=== PATIENT | male | born 1965 | race Caucasian/White ===

== ENCOUNTER 2018-05-19 13:35 | Inpatient (IN) | payer MEDICAID ==
[~2018-05-19] VITALS: Ht 160 cm; Wt 75.5 kg
[~2018-05-19 13:35] MED LIST: ASPI325T8 PO; BACL20TA PO; CELE200C PO; DULO60CA6 PO; FLUO20CA16 PO; GABA-586 PO; HYDR-2155 PO; IBUP800T19 PO; LISI-338 PO; METO25TA2 PO; OMEP20TA8 PO; PENI500T PO; SIMV10TA3 PO; TOPI50TA38 PO
[2018-05-19 14:26] LABS: BASO # 0.1 x10^3/uL (0.0-0.2); BASO % 1 % (0-3); EOS % 0 % (0-3); HEMATOCRIT 46.1 % (39.0-53.0); HEMOGLOBIN 15.6 g/dL (13.0-17.5); LYMPH % 9 % (24-48); MEAN CORPUSCULAR HEMOGLOBIN 31 pg (25-35); MEAN CORPUSCULAR HGB CONC 34 g/dL (31-37); MEAN CORPUSCULAR VOLUME 90 fL (79-100); MONO # 1.1 x10^3/uL (0.0-1.1); MONO % 10 % (0-9); NEUT # 9.1 x10^3uL (1.8-7.7); NEUT % 81 % (31-73); PLATELET COUNT 321 x10^3/uL (140-400); RED CELL DISTRIBUTION WIDTH 12.5 % (11.5-14.5); WHITE BLOOD COUNT 11.2 x10^3/uL (4.0-11.0)
[2018-05-19] MEDS ORDERED: diphenhydrAMINE 50 MG/ML VIAL IVP ONE (14:30)
[2018-05-19] MEDS ORDERED: BENZTROPINE 2 MG/2 ML AMPUL. IV ONE (14:30)
--- NOTE | 2018-05-19 14:49 | PHYS DOC ---
Past History Past Medical History: Arthritis, Fibromyalgia, Other Past Surgical History: No Surgical History Alcohol Use: None Drug Use: None Adult General Chief Complaint Chief Complaint: UPPER EXTREMITY PAIN HPI HPI 52-year-old male with multiple medical problems including depression who is on multiple psychiatric medications presents with unusual, uncontrollable arm movements that arriving in nature. He is also really unable to look up and he has a lot of ticking of his legs. He has not had any fever felt hot. He did fall a couple of days ago hit his head was seen at [facility] and discharged. He has never had this kind of problem before. This apparently started 2 days ago and has become progressively worse.[] Review of Systems Review of Systems Constitutional: Denies fever or chills [] Eyes: Denies change in visual acuity, redness, or eye pain [] HENT: Denies nasal congestion or sore throat [] Respiratory: Denies cough or shortness of breath [] Cardiovascular: No additional information not addressed in HPI [] GI: Denies abdominal pain, nausea, vomiting, bloody stools or diarrhea [] : Denies dysuria or hematuria [] Musculoskeletal: Per history of present illness[] Integument: Denies rash or skin lesions [] Neurologic: Per history of present illness[] Endocrine: Denies polyuria or polydipsia [] All other systems were reviewed and found to be within normal limits, except as documented in this note. Current Medications Current Medications Current Medications Medications (Trade) Dose Ordered Sig/Edwin Start Time Stop Time Status Last Admin Dose Admin Benztropine Mesylate (Cogentin) 2 mg 1X ONCE 05/19/18 14:30 05/19/18 14:31 DC 05/19/18 14:24 2 MG Diphenhydramine HCl (Benadryl) 50 mg 1X ONCE 05/19/18 14:30 05/19/18 14:31 DC 05/19/18 14:17 50 MG Allergies Allergies Allergies Coded Allergies Type Severity Reaction Last Updated Verified tramadol Allergy Intermediate Itching 05/19/18 Yes Physical Exam Physical Exam Constitutional: Well developed, well nourished, appears acutely ill. [] HENT: Normocephalic, atraumatic, bilateral external ears normal, oropharynx moist, no oral exudates, nose normal. [] Eyes: PERRLA, EOMI, conjunctiva normal, no discharge. [] Neck: Flexed forward but nontender. [] Cardiovascular:Heart rate regular rhythm, no murmur [] Lungs & Thorax: Bilateral breath sounds clear to auscultation [] Abdomen: Bowel sounds normal, soft, no tenderness, no masses, no pulsatile masses. [] Skin: Warm, dry, no erythema, no rash. [] Back: No tenderness, no CVA tenderness. [] Extremities: No tenderness, no cyanosis, no clubbing, ROM intact, no edema. [] Neurologic: Alert and oriented X 3, dystonic movements of his neck in the way of flexed forward and riding twisting movements of the left arm and uncontrollable kicking of his right and left leg. [] Psychologic: Extremely anxious. [] Current Patient Data Vital Signs Vital Signs Date Time Temp Pulse Resp B/P (MAP) Pulse Ox O2 Delivery O2 Flow Rate FiO2 05/19/18 13:45 97.3 90 24 97 Room Air Lab Results Laboratory Tests Test 05/19/18 14:10 White Blood Count 11.2 x10^3/uL (4.0-11.0) H Red Blood Count 5.10 x10^6/uL (4.30-5.70) Hemoglobin 15.6 g/dL (13.0-17.5) Hematocrit 46.1 % (39.0-53.0) Mean Corpuscular Volume 90 fL (79-100) Mean Corpuscular Hemoglobin 31 pg (25-35) Mean Corpuscular Hemoglobin Concent 34 g/dL (31-37) Red Cell Distribution Width 12.5 % (11.5-14.5) Platelet Count 321 x10^3/uL (140-400) Neutrophils (%) (Auto) 81 % (31-73) H Lymphocytes (%) (Auto) 9 % (24-48) L Monocytes (%) (Auto) 10 % (0-9) H Eosinophils (%) (Auto) 0 % (0-3) Basophils (%) (Auto) 1 % (0-3) Neutrophils # (Auto) 9.1 x10^3uL (1.8-7.7) H Lymphocytes # (Auto) 1.0 x10^3/uL (1.0-4.8) Monocytes # (Auto) 1.1 x10^3/uL (0.0-1.1) Eosinophils # (Auto) 0.0 x10^3/uL (0.0-0.7) Basophils # (Auto) 0.1 x10^3/uL (0.0-0.2) Ethyl Alcohol Level < 10 mg/dL (0-10) EKG EKG [] Radiology/Procedures Radiology/Procedures [] Impressions: REASON: trauma PROCEDURE: CT HEAD WO CONTRAST EXAM: Head CT without contrast. HISTORY: Involuntary movements. TECHNIQUE: Computed tomographic images of the head were obtained without intravenous contrast. *One or more of the following individualized dose reduction techniques were utilized for this examination: 1. Automated exposure control. 2. Adjustment of the mA and/or kV according to patient size. 3. Use of iterative reconstruction technique. COMPARISON: None. FINDINGS: There is no acute or subacute hemorrhage. There is no mass effect or midline shift. There is no hydrocephalus. There is an incidental cavum septum pellucidum et vergae. There are areas of decreased attenuation within the cerebral white matter, nonspecific and likely related to chronic small vessel disease. The visualized portions of the orbits, paranasal sinuses and mastoid air cells are unremarkable. No suspicious calvarial lesion is seen. IMPRESSION: No acute intracranial findings. Course & Med Decision Making Course & Med Decision Making Pertinent Labs and Imaging studies reviewed. (See chart for details) [ED course: Evaluation reveals a 52-year-old male who is likely having dystonic reactions to some of his psychiatric drugs. Patient was given 50 mg of Benadryl IV followed by Cogentin 2 mg IV with marked improvement in his symptoms. His left arm had the most improvement as it has stopped deriving twisting motion. His neck is relaxed he still having some spontaneous jerking of the legs. We will need to admit the patient for observation and continued treatment.] CRITICAL CARE: Time spent was 35 minutes. This includes medical management, evaluation, reevaluation, discussion with consultants and family. Critical Care does NOT include time spent on separately billed procedures. Dragon Disclaimer Dragon Disclaimer This electronic medical record was generated, in whole or in part, using a voice recognition dictation system. Departure Departure: Impression: Primary Impression: Acute dystonic reaction due to drugs Disposition: ADMITTED INPATIENT Admitting Physician: Jerome Camarillo Condition: IMPROVED Referrals: PRISCILLA CONDE DO (PCP) NINA TIPTON DO May 19, 2018 14:49
[2018-05-19 14:50] LABS: ALBUMIN 4.5 g/dL (3.4-5.0); ALBUMIN/GLOBULIN RATIO 1.6 (1.0-1.7); C REACTIVE PROTEIN 16.4 mg/L (0-3.3); CALCIUM 9.4 mg/dL (8.5-10.1); CREATININE 0.9 mg/dL (0.7-1.3); POTASSIUM 3.9 mmol/L (3.5-5.1); TOTAL BILIRUBIN 2.5 mg/dL (0.2-1.0); TOTAL PROTEIN 7.3 g/dL (6.4-8.2)
--- NOTE | 2018-05-19 15:04 | RAD ---
EXAM: Head CT without contrast. HISTORY: Involuntary movements. TECHNIQUE: Computed tomographic images of the head were obtained without intravenous contrast. *One or more of the following individualized dose reduction techniques were utilized for this examination: 1. Automated exposure control. 2. Adjustment of the mA and/or kV according to patient size. 3. Use of iterative reconstruction technique. COMPARISON: None. FINDINGS: There is no acute or subacute hemorrhage. There is no mass effect or midline shift. There is no hydrocephalus. There is an incidental cavum septum pellucidum et vergae. There are areas of decreased attenuation within the cerebral white matter, nonspecific and likely related to chronic small vessel disease. The visualized portions of the orbits, paranasal sinuses and mastoid air cells are unremarkable. No suspicious calvarial lesion is seen. IMPRESSION: No acute intracranial findings. Electronically signed by: Chelsea Swenson MD (05/19/2018 3:02 PM) [id number]
[2018-05-19] MEDS: IV NORMAL SALINE 1,000ML 1,000 ML IV SCH ×2 (15:11→19:51)
[2018-05-19] MEDS ORDERED: ACETAMINOPHEN 325 MG TABLET PO PRN (15:15)
[2018-05-19 17:17] VITALS: BP 139/84
[2018-05-19] MEDS ORDERED: CELECOXIB 200 MG PO SCH (17:45)
[2018-05-19] MEDS ORDERED: NON FORMULARY ITEM (Duloxetine Hcl (Cymbalta) 60 MG) PO SCH (17:45)
[2018-05-19 19:37] VITALS: BP 127/80
[2018-05-19] MEDS: TOPIRAMATE 25 MG TABLET. PO SCH (19:51)
[2018-05-19] MEDS: GABAPENTIN 300 MG CAPSULE. PO SCH (20:35)
[2018-05-19] MEDS: SIMVASTATIN 10 MG TABLET PO SCH (20:35)
[2018-05-19] MEDS: PANTOPRAZOLE 40 MG TABLET. PO SCH (20:35)
[2018-05-19] MEDS: BACLOFEN 20 MG TABLET PO SCH (20:35)
[2018-05-19] MEDS ORDERED: PENICILLIN V POTASSIUM PO SCH (21:00)
[2018-05-19 22:45] VITALS: BP 116/74
[2018-05-19] MEDS: HYDROcodone/APAP 5/325MG 1 TAB TABLET PO PRN (23:35)
--- NOTE | 2018-05-20 00:56 | HP ---
ADMIT DATE: 05/19/2018 HISTORY OF PRESENT ILLNESS: The patient is a 52-year-old male patient who came to the Emergency Room complaining of left upper extremity pain. He presented to the Emergency Room with unusual uncontrollable arm movement. He is unable to look up when he arrived to the Emergency Room; he has also lots of ticks in his legs, has not had any fever. He did fall a couple of days ago and hit his head. He was seen in ____ and was discharged. According to him, he has never had this kind of problem before. All this started about 2 days ago and has become progressively worse. Said on Thursday, he was able to drive his car and do shopping at [place] and brought back his stuff to the house as he lives with his father and since then he has this problem, although his account changed to the nursing staff as this happened last Thursday. PAST MEDICAL HISTORY: Significant for fibromyalgia, hypertension, hyperlipidemia. He has also had dysphagia due to esophageal stricture that was dilated years ago. PAST SURGICAL HISTORY: Removal of what seems to be a lipoma on the left side of the head, it was in the scalp area. He has also had esophageal stricture dilatation done years ago. He denied any more dysphagia to solids or liquids. ALLERGIES: He is allergic to TRAMADOL. MEDICATIONS: He is currently on following medications: He is on penicillin V 500 mg 3 times a day, baclofen 20 mg 3 times a day, simvastatin 10 mg at bedtime, metoprolol succinate for Toprol-XL 25 mg once a day, lisinopril 5 mg once a day, aspirin 325 mg daily, Celebrex 200 mg once a day, ibuprofen 800 mg 3 times a day with meals, hydrocodone/APAP 5/325 one tablet q.6 hourly p.r.n., gabapentin 300 mg twice a day, topiramate 50 mg twice a day, duloxetine 60 mg daily and omeprazole 20 mg twice a day. FAMILY HISTORY: He has 5 sisters, all older and healthy. His father is alive at age of 72 and he has myocardial infarction. His mother is alive in her 70s. His parents are and he lives with his father. SOCIAL HISTORY: He is single, never , has no children. He does not smoke, drink alcohol or use recreational drugs. He is on disability because of fibromyalgia and bulging disks. PRIMARY CARE PHYSICIAN: Dr. Varsha Carrillo at [place] [facility]. PHYSICAL EXAMINATION: On arrival to the Emergency Room, he apparently displayed an abnormal movement. Although he was alert, oriented to time, place and person, he has dystonic movement of his neck with basically flexed towards the right side with riding and twisting movement of his left arm and has abnormal movement also both left and right leg; however, he is able to move his right upper and right lower extremity more readily than his left upper and left lower extremity. At least by the time I saw him, he was unable to move his left upper extremity, was unable to flex the left knee and continued to have dystonic movement of his neck. He closed his eyes and occasionally looks up, but mostly he looks down. LABORATORY DATA: In the Emergency Room showed that his white cell count was 11,200, hemoglobin 15.6, hematocrit 46, MCV 90 and platelet count of 321,000. His serum sodium was 136, potassium 3.9, chloride 100, bicarbonate 23, anion gap of 13, BUN 23, creatinine 0.9, estimated GFR was 89 mL per minute, his glucose was 100, lactic acid was 1.2, calcium was 9.4. Total bilirubin was 2.5. His AST, ALT were normal as well alkaline phosphatase. His C-reactive protein was high at 16.4. Total protein was 7.3, albumin was 4.5. His toxic screen was less than 10. IMAGING STUDIES: CT scan of his head showed that there is no acute or subacute hemorrhage. There is no mass effect or midline shift. There is no hydrocephalus. There is an incidental cavum septum pellucidum et vergae. There are areas of decreased attenuation within the cerebral white matter, nonspecific and likely related to chronic small vessel disease. The visualized portions of the orbits, paranasal sinuses and mastoid air cells are unremarkable. No suspicious calvarial lesion is seen and basically no acute intracranial finding. We will continue with all his medication. He has no problem with swallowing. I saw him eating his dinner and was eating his meat without any difficulty. I would consult Dr. Middleton. He seemed to have some form of acute dystonia versus cerebral infarct with hemiballismus. JOSE CARPENTER MD DR: WILLAM/evangelist JOB#: [id number] / [id number]
[2018-05-20 05:16] VITALS: BP 122/77
[2018-05-20] MEDS: TOPIRAMATE 25 MG TABLET. PO SCH ×2 (05:30→16:29)
[2018-05-20] MEDS: HYDROcodone/APAP 5/325MG 1 TAB TABLET PO PRN ×2 (05:31→20:12)
[2018-05-20] MEDS: IV NORMAL SALINE 1,000ML 1,000 ML IV SCH (05:32)
[2018-05-20 06:58] LABS: HEMATOCRIT 41.4 % (39.0-53.0); HEMOGLOBIN 14.4 g/dL (13.0-17.5); RED BLOOD COUNT 4.6 x10^6/uL (4.30-5.70); RED CELL DISTRIBUTION WIDTH 12.5 % (11.5-14.5); WHITE BLOOD COUNT 6.2 x10^3/uL (4.0-11.0)
[2018-05-20 07:23] LABS: ALBUMIN 3.9 g/dL (3.4-5.0); ALBUMIN/GLOBULIN RATIO 1.4 (1.0-1.7); CALCIUM 8.9 mg/dL (8.5-10.1); CREATININE 0.9 mg/dL (0.7-1.3); POTASSIUM 3.7 mmol/L (3.5-5.1); TOTAL BILIRUBIN 1.2 mg/dL (0.2-1.0); TOTAL PROTEIN 6.6 g/dL (6.4-8.2)
[2018-05-20] MEDS: GABAPENTIN 300 MG CAPSULE. PO SCH ×2 (08:43→20:13)
[2018-05-20] MEDS: ASPIRIN 325 MG TABLET PO SCH (08:43)
[2018-05-20] MEDS: BACLOFEN 20 MG TABLET PO SCH ×3 (08:43→20:13)
[2018-05-20] MEDS: FLUoxetine HCL 20 MG CAPSULE PO SCH (08:43)
[2018-05-20] MEDS: IBUPROFEN 800 MG TABLET. PO SCH ×3 (08:43→16:19)
[2018-05-20] MEDS: PANTOPRAZOLE 40 MG TABLET. PO SCH ×2 (08:43→20:13)
[2018-05-20] MEDS: LISINOPRIL 5 MG TABLET. PO SCH (08:44)
--- NOTE | 2018-05-20 09:09 | RAD ---
Carotid ultrasound, 05/20/2018: HISTORY: Left-sided hemiparesis Duplex evaluation of the carotid arteries and neck was performed including grayscale, color-flow and spectral Doppler analysis. There is mild intimal thickening in the carotid arteries bilaterally. No prominent focal plaque formation is seen. The peak systolic velocity in the right internal carotid artery is 71 cm per sec with an end-diastolic velocity of 21 cm/s and an internal carotid to common carotid artery ratio of 0.8. On the left the peak systolic velocity in the internal carotid artery is 62 cm/s with an end-diastolic velocity of 23 cm/s and an internal carotid to common carotid artery ratio of 0.7. These Doppler findings do not suggest significant stenosis. Antegrade flow is present in both vertebral arteries in the neck. IMPRESSION: No duplex evidence of significant carotid stenosis in the neck. Note: Stenosis calculations for CT, MRA and conventional angiography are based upon determination of the distal ICA diameter in accordance with the NASCET methodology. Stenosis calculations for Doppler studies are derived from validated velocity criteria which are known to correlate with NASCET methodology of determining stenosis. Electronically signed by: Christopher Guadarrama MD (05/20/2018 9:06 AM) [facility]
[2018-05-20 09:45] LABS: BARBITURATES NEG (NEG); BENZODIAZEPINES NEG (NEG); CANNABINOIDS NEG (NEG); COCAINE NEG (NEG); METHADONE NEG (NEG); OPIATES POS (NEG); PHENCYCLIDINE NEG (NEG)
[2018-05-20 09:47] LABS: BILIRUBIN,URINE NEG (NEG); CLARITY,URINE CLEAR; COLOR,URINE YELLOW; GLUCOSE,URINE NEG (NEG); NITRITE,URINE NEG (NEG); UROBILINOGEN,URINE 1 mg/dL (0.2 mg/dL)
[2018-05-20 09:48] LABS: AMORPHOUS SEDIMENT,UR PRESENT /HPF; BACTERIA,URINE 0 /HPF (0-FEW); RBC,URINE RARE /HPF (0-2); SQUAMOUS EPITHELIAL CELL,UR FEW /LPF; WBC,URINE OCC /HPF (0-4)
[2018-05-20 09:50] LABS: AMPHETAMINE/METHAMPHETAMINE NEG (NEG)
[2018-05-20 10:17] VITALS: BP 142/77
[2018-05-20 15:03] VITALS: BP 102/69
[2018-05-20] MEDS ORDERED: ACETAMINOPHEN 325 MG TABLET PO ONE (16:20)
[2018-05-20] MEDS: ACETAMINOPHEN 325 MG TABLET PO PRN (16:29)
[2018-05-20 19:10] VITALS: BP 100/60
[2018-05-20] MEDS: SIMVASTATIN 10 MG TABLET PO SCH (20:12)
--- NOTE | 2018-05-20 21:08 | PN ---
DATE: 05/20/2018 SUBJECTIVE: The patient is resting slightly propped up in bed, in no apparent distress. He is more awake, alert, has been able to move his left upper and lower extremity to much good extent than yesterday. He was in fact able to walk without assistance or assistive devices. He does complain of swelling on his dorsal aspect of his left hand. He was seen by Dr. Middleton and he does not think that he has any stroke and does not think that he needs any carbidopa/levodopa. PHYSICAL EXAMINATION: GENERAL: When I examined him, he looked well and was clearly in no apparent respiratory distress. No pallor, jaundice, cyanosis, or thyromegaly. No jugular venous distension. No lower limb edema. VITAL SIGNS: His heart rate was 61, blood pressure 142/77, temperature was 97.7, respiratory rate was 18 and oxygen saturation was 95%. HEAD, EYES, EARS, NOSE AND THROAT: Normocephalic, atraumatic. NECK: Supple. HEART: Showed normal first and second heart sounds with no gallop, rub or murmur. CHEST: Clear to auscultation. No crepitation or rhonchi. ABDOMEN: Distended, soft, nontender. No guarding or rigidity. No organomegaly. All hernial orifices intact. Bowel sounds normal. NEUROLOGIC: He is definitely more awake, alert, responding appropriately. All cranial nerves intact. He moves extremities without difficulty. He is able to move his left upper and left lower extremity to greater extent than yesterday. PLAN: My plan is to consult Physical and occupational therapy. I will arrange for him to have a venous Doppler ultrasound of his left upper extremity and if the ultrasound is negative, the patient is safe to ambulate or probably consider discharging home. JOSE CARPENTER MD DR: WILLAM/evangelist JOB#: [id number] / [id number]
[2018-05-20 23:23] VITALS: BP 117/64
[2018-05-21] MEDS: HYDROcodone/APAP 5/325MG 1 TAB TABLET PO PRN (02:26)
[2018-05-21] MEDS: TOPIRAMATE 25 MG TABLET. PO SCH (05:41)
[2018-05-21] MEDS: ACETAMINOPHEN 325 MG TABLET PO PRN (06:11)
[2018-05-21 06:17] VITALS: BP 144/81
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
--- NOTE | 2018-05-21 07:57 | RAD ---
CT of the head without contrast, 05/21/2018: HISTORY: Involuntary muscle movements There is mild cerebral and cerebellar atrophy. There is a cavum septum pellucidum et vergae which is a normal variant. The ventricles are not enlarged. There is no shift of the midline structures. There is no evidence of acute intracranial hemorrhage or mass effect. IMPRESSION: No acute intracranial abnormality is detected. RS Compliance Statement: One or more of the following individualized dose reduction techniques were utilized for this examination: 1. Automated exposure control 2. Adjustment of the mA and/or kV according to patient size 3. Use of iterative reconstruction technique Electronically signed by: Christopher Guadarrama MD (05/21/2018 7:54 AM) [facility]
[2018-05-21] MEDS: LISINOPRIL 5 MG TABLET. PO SCH (08:59)
[2018-05-21] MEDS: FLUoxetine HCL 20 MG CAPSULE PO SCH (08:59)
[2018-05-21] MEDS: BACLOFEN 20 MG TABLET PO SCH ×2 (08:59→13:46)
[2018-05-21] MEDS: ASPIRIN 325 MG TABLET PO SCH (08:59)
[2018-05-21] MEDS: GABAPENTIN 300 MG CAPSULE. PO SCH (08:59)
[2018-05-21] MEDS: PANTOPRAZOLE 40 MG TABLET. PO SCH (08:59)
--- NOTE | 2018-05-21 09:06 | RAD ---
Left upper extremity venous Doppler ultrasound HISTORY: lt arm swelling TECHNIQUE: Grayscale, color Doppler and spectral waveform analysis is performed. FINDINGS: The left internal jugular vein, subclavian vein, axillary vein, brachial vein, basilic vein, cephalic vein, radial vein and ulnar vein are visualized and appear patent. Normal compressibility where applied. Normal response to augmentation where applied. IMPRESSION: Negative for left arm deep venous thrombosis. Electronically signed by: Saroj Sanz MD (05/21/2018 9:03 AM) [id number]
[2018-05-21 11:15] VITALS: BP 145/87
[2018-05-21 14:41] VITALS: BP 135/66
--- NOTE | 2018-05-21 16:56 | RAD ---
FOREARM AP LATERAL LEFT Clinical Indication: LEFT ARM PAIN WITH LIMITED MOBILITY Comparison: None. Findings: There is no acute fracture or dislocation of the radius or ulna. The elbow and wrist articulations appear normal. The mineralization is normal. There is no bony erosion. There is no elbow joint effusion. There is no soft tissue swelling. There may be subcutaneous edema. A punctate radiodensity is noted just medial to the ulnar styloid on the AP view, not definitely seen on lateral view. Cannot exclude a tiny foreign body. IMPRESSION: No acute bone abnormality. Please see above discussion. Electronically signed by: Kashif French MD (05/21/2018 4:53 PM) [id number]
--- NOTE | 2018-05-21 16:56 | RAD ---
EXAM: Left shoulder, 3 views. HISTORY: Pain. Limited range of motion. COMPARISON: None. FINDINGS: 3 views left shoulder obtained. There is no fracture, dislocation or subluxation. IMPRESSION: No acute osseous finding. Electronically signed by: Chelsea Swenson MD (05/21/2018 4:53 PM) [id number]
--- NOTE | 2018-05-21 17:48 | DS ---
DATE OF DISCHARGE: HOSPITAL COURSE: The patient is a 52-year-old male patient who came to the Emergency Room with normal twisting movement and pain in his left upper extremity, weakness in the left side. We did CT scan and was extensively investigated, was seen by Dr. Middleton. CT scan was done twice. No evidence of any stroke. He was evaluated by the Physical Therapy and has been ambulatory without assistance. As he continued to complain of pain in his forearm and left shoulder, we did x-ray of his left shoulder and left forearm, and there is no evidence of fracture, has remained stable, and able to ambulate. Decision was made to discharge him home. PHYSICAL EXAMINATION: GENERAL: When I saw him today, he looked well and was clearly in no apparent respiratory distress. No pallor, jaundice, cyanosis or thyromegaly. No jugular venous distention. No limb edema. VITAL SIGNS: His heart rate was 59, blood pressure was 135/66, temperature was 97.6, respiratory rate 20, and oxygen saturation was 96%. HEAD, EYES, EARS, NOSE AND THROAT: Normocephalic, atraumatic. NECK: Supple. HEART: Showed normal first and second heart sounds. No gallop, rub or murmur. CHEST: Clear to auscultation. No crepitation or rhonchi. ABDOMEN: Distended, soft, nontender. NEUROLOGIC: He is awake, alert. EXTREMITIES: He moves extremities without difficulty, ambulates with a walker. LABORATORY DATA: Showed a white cell count 6200, hemoglobin 14, hematocrit 42, MCV 90 and platelet count 363,000. Serum sodium was 135, potassium 3.7, chloride 100, bicarbonate 25, anion gap of 10, BUN 18, creatinine 0.9, estimated GFR was 89 mL per minute. His glucose was 103, calcium was 8.9. Total bilirubin 1.2. AST, ALT, alkaline phosphatase were normal. Total protein was 6.6, albumin 2.9. DISCHARGE MEDICATIONS: He was discharged home to continue on aspirin 325 mg once a day, baclofen 20 mg 3 times a day, Celebrex 200 mg once a day, duloxetine for Cymbalta 60 mg once a day, fluoxetine for Prozac 20 mg once a day, gabapentin 300 mg twice a day, hydrocodone/APAP 5/325 one tablet every 6 hours, ibuprofen 800 mg 3 times a day with meals, lisinopril 5 mg once a day, metoprolol 25 mg once a day, omeprazole 20 mg twice a day, simvastatin 10 mg tablet once a day, and topiramate for Topamax 50 mg twice a day. FINAL DISCHARGE DIAGNOSES: 1. Possible segmental dystonia confined to the left upper and lower extremity with history of difficulty speaking. Symptom has improved by Benadryl and benztropine. 2. Chronic low back pain radiating to the lower extremities with chronic lumbosacral radiculopathy. 3. Longstanding history of depression and exposure to antipsychotic and antidepressant medications. 4. Longstanding history of fibromyalgia, hyperlipidemia, and hypertension. JOSE CARPENTER MD DR: WILLAM/evangelist JOB#: [id number] / [id number]
--- NOTE | 2018-05-25 13:15 | PN ---
DATE: 05/21/2018 SUBJECTIVE: The patient denies any new medical neurological complaints. He continued to complain of lower back pain radiating into the lower extremities. His stiffness of the left upper and lower extremities has improved; however, he continued to complain of pain confined to the left shoulder and upper extremity. X-ray of the left shoulder and left forearm revealed no evidence of fracture. OBJECTIVE: GENERAL: Well-developed, well-nourished male, not in acute distress. VITAL SIGNS: Blood pressure was 144/81, respiratory rate 20, pulse ____, oxygen saturation 97% on room air. HEENT: Normocephalic, atraumatic, otherwise unremarkable. NECK: Supple. Negative for carotid bruit, lymphadenopathy or thyromegaly. LUNGS: Clear to A and P. CARDIOVASCULAR: Regular rate and rhythm, normal S1, S2. There is no S3, S4, or murmurs. ABDOMEN: Soft. Bowel sounds positive. No palpable mass, organomegaly or tenderness. EXTREMITIES: Negative for cyanosis, clubbing or pitting edema. NEUROLOGICAL: Mental Status: The patient is alert and oriented x 3. Speech is fluent. There is no language dysfunction. Cranial nerves are intact. Motor Examination: No focal muscle bulk was seen. Tone is normal. The strength is 4/5 throughout. Sensory examination revealed normal pinprick, light touch, vibratory and position senses. Deep tendon reflexes were asymmetric and active without pathology responses. Gait: The stance is steady. The patient walked in the room without any assistance. IMPRESSION: 1. Possible segmental dystonia confined to the left upper and lower extremities -- improved by Benadryl and benztropine. 2. Chronic low back pain radiating into the lower extremities and consistent with chronic lumbosacral radiculopathy. 3. Multiple psychiatric problems include depressions. RECOMMENDATIONS: 1. Continue with current management initiated by Dr. Camarillo. 2. Physical therapy as tolerated. 3. Follow up with Dr. Skinner after 2 weeks from discharge and arrange for ____ EMG/NCS of the lower extremities. M Ab SKINNER MD DR: DAQUAN/evangelist JOB#: [id number] / [id number]
== END 2018-05-21 17:50 | disposition home or self-care (01) | DRG 93 ==
LOC: ER 13:35 → 1 SOUTH 15:10
PROVIDERS: ADMIT Internal Medicine; ATTEND Internal Medicine
DX: G24.02 Drug induced acute dystonia (principal); F32.9 Major depressive disorder, single episode, unspecified; M19.90 Unspecified osteoarthritis, unspecified site; M79.7 Fibromyalgia; E78.5 Hyperlipidemia, unspecified; I10 Essential (primary) hypertension; G89.29 Other chronic pain; M54.17 Radiculopathy, lumbosacral region; M54.5 Low back pain; Z88.6 Allergy status to analgesic agent; Z82.49 Family history of ischemic heart disease and other diseases of the circulatory system
CPT/HCPCS: 36415; 70450; 73030; 73090; 80053; 80061; 80307; 81001; 82550; 83605; 85025; 85027; 86140; 90471; 90756; 93880; 93971; 96374; 96375; G0480; J0515; J1200; 97110; 97535; 99285-25; J7030; Q2035

== ENCOUNTER 2018-05-26 06:20 | Emergency (ER) | payer MEDICAID ==
[~2018-05-26] VITALS: Ht 160 cm; Wt 74.9 kg
--- NOTE | 2018-05-26 06:56 | PHYS DOC ---
Past History Past Medical History: Arthritis, Fibromyalgia, High Cholesterol, Other Additional Past Medical Histor: depression Past Surgical History: No Surgical History Alcohol Use: None Drug Use: None Adult General Chief Complaint Chief Complaint: DIZZY/LIGHT HEADED HPI HPI Patient is a 52-year-old male presents complaining of lightheadedness and left arm pain and weakness for the past 1-2 weeks. Patient was admitted to the hospital approximately a week ago for left armuncontrollable movements and had an extensive workup to include 2 CT scans of the head and x-rays of the left upper extremity that found no acute issues. Patient reports that this has been present as noted above without any significant change although the swelling of his left arm has improved. Patient has been unable to get into his primary care physician and so presents to the emergency department. Patient denies any chest pain, new weakness, palpitations, change in exercise tolerance, nor leg swelling. Patient denies any cough or fever. Nothing seems to make the symptoms better or worse. Symptoms are moderate in intensity.[] Review of Systems Review of Systems Constitutional: Denies fever or chills [] Eyes: Denies change in visual acuity, redness, or eye pain [] HENT: Denies nasal congestion or sore throat [] Respiratory: Denies cough or shortness of breath [] Cardiovascular: No chest pain or palpitations[] GI: Denies abdominal pain, nausea, vomiting, bloody stools or diarrhea [] : Denies dysuria or hematuria [] Musculoskeletal: Denies back pain or joint pain [] Integument: Denies rash or skin lesions [] Neurologic: Denies headache, focal weakness or sensory changes [] Endocrine: Denies polyuria or polydipsia [] All other systems were reviewed and found to be within normal limits, except as documented in this note. Current Medications Current Medications Current Medications Medications (Trade) Dose Ordered Sig/Edwin Start Time Stop Time Status Last Admin Dose Admin Diphenhydramine HCl (Benadryl) 50 mg 1X ONCE 05/26/18 07:00 05/26/18 07:01 Ketorolac Tromethamine (Toradol 15mg Vial) 15 mg 1X ONCE 05/26/18 07:00 05/26/18 07:01 Allergies Allergies Allergies Coded Allergies Type Severity Reaction Last Updated Verified tramadol Allergy Intermediate Itching 05/19/18 Yes Physical Exam Physical Exam Constitutional: Well developed, well nourished, no acute distress, non-toxic appearance. [] HENT: Normocephalic, atraumatic, bilateral external ears normal, oropharynx moist, no oral exudates, nose normal. [] Eyes: PERRLA, EOMI, conjunctiva normal, no discharge. [] Neck: Normal range of motion, no tenderness, supple, no stridor. [] Cardiovascular:Heart rate regular rhythm, no murmur [] Lungs & Thorax: Bilateral breath sounds clear to auscultation [] Abdomen: Bowel sounds normal, soft, no tenderness, no masses, no pulsatile masses. [] Skin: Warm, dry, no erythema, no rash. [] Back: No tenderness, no CVA tenderness. [] Extremities: Tenderness in the mid shaft region of the left forearmmore in the syndesmosis rather than any bony tenderness. There is crepitus with pronation and supination, no cyanosis, no clubbing, ROM intact, no edema. A joint above and a joined below the forearm were evaluated and were normal. Patient is distal neurovascularly intact. [] Neurologic: Alert and oriented X 3, normal motor function, normal sensory function, no focal deficits noted. No dystonic movements appreciated [] Psychologic: Affect flat, poor eye contact, judgement normal, mood normal. [] EKG EKG EKG shows a sinus rhythm at 74 bpm, normal axis, QTC of 442 ms, no ST elevations , interpreted by me at 0700[] Radiology/Procedures Radiology/Procedures Chest x-ray shows no infiltrate, no effusion, no pneumothorax Left forearm x-ray shows no fracture or dislocation, no acute changes when compared with x-ray of 05/21/2018[] Course & Med Decision Making Course & Med Decision Making Pertinent Labs and Imaging studies reviewed. (See chart for details) ED course: Patient arrived, was placed in bed, and tolerated exam well. His records were reviewed from his recent admission from last week. Patient had 2 CT scans of his head as noted previously both of which were negative for any acute issues. There were performed x-rays of his shoulder his forearm as well as a venous ultrasound all of which were negative for any acute features. Patient had improvement with the medications administered in the emergency department. Medical decision making: Do not see any evidence of this being an acute dystonic reaction at this time however will continue patient on Benadryl therapy as an outpatient for those symptoms. Patient has tenderness in the syndesmosis of his left forearm without any swelling, do not believe that this is a DVT given that symptoms have improved since his ultrasound on 05/21/2018. No evidence of a fracture or dislocation. No evidence of an acute coronary syndrome. No evidence of significant electrolyte abnormality.[] Dragon Disclaimer Dragon Disclaimer This electronic medical record was generated, in whole or in part, using a voice recognition dictation system. Departure Departure: Impression: Primary Impression: Dizziness Additional Impression: Pain in left forearm Disposition: HOME, SELF-CARE Condition: IMPROVED Referrals: PRISCILLA CONDE DO (PCP) Follow-up in 2 days Patient Instructions: Dizziness, Ligament Sprain, Muscle Strain Additional Instructions: Follow-up with your regular doctor in 2 days. Drink plenty of fluids. Take your medication as prescribed. Return to the ER if worsening symptoms or any other concerns. Scripts Diphenhydramine Hcl (BENADRYL) 25 Mg Capsule 25 MG PO TID for arm pain/movements, #30 CAP Prov: RYAN BLEVINS DO 05/26/18 Meloxicam (MELOXICAM) 7.5 Mg Tablet 7.5 MG PO DAILY for PAIN, #20 TAB Prov: RYAN BLEVINS DO 05/26/18 Problem Qualifiers RYAN BLEVINS DO May 26, 2018 06:55
[2018-05-26 06:57] LABS: BASO # 0.1 x10^3/uL (0.0-0.2); BASO % 1 % (0-3); EOS % 0 % (0-3); HEMOGLOBIN 14.7 g/dL (13.0-17.5); LYMPH # 0.7 x10^3/uL (1.0-4.8); LYMPH % 11 % (24-48); MEAN CORPUSCULAR HEMOGLOBIN 31 pg (25-35); MEAN CORPUSCULAR HGB CONC 35 g/dL (31-37); MEAN CORPUSCULAR VOLUME 90 fL (79-100); MONO # 0.5 x10^3/uL (0.0-1.1); MONO % 7 % (0-9); NEUT # 5.4 x10^3uL (1.8-7.7); NEUT % 80 % (31-73); PLATELET COUNT 390 x10^3/uL (140-400); RED BLOOD COUNT 4.68 x10^6/uL (4.30-5.70); RED CELL DISTRIBUTION WIDTH 12.5 % (11.5-14.5); WHITE BLOOD COUNT 6.7 x10^3/uL (4.0-11.0)
[2018-05-26] MEDS ORDERED: diphenhydrAMINE 50 MG/ML VIAL IVP ONE (07:00)
[2018-05-26] MEDS ORDERED: KETOROLAC 15 MG/ML VIAL. IV ONE (07:00)
[2018-05-26 07:19] LABS: ALBUMIN 4.2 g/dL (3.4-5.0); ALBUMIN/GLOBULIN RATIO 1.4 (1.0-1.7); CALCIUM 9.2 mg/dL (8.5-10.1); GFR 78.8; MAGNESIUM 2.1 mg/dL (1.8-2.4); POTASSIUM 3.5 mmol/L (3.5-5.1); TOTAL BILIRUBIN 0.9 mg/dL (0.2-1.0); TOTAL PROTEIN 7.1 g/dL (6.4-8.2)
[2018-05-26] MEDS ORDERED: DIPH25CA58 PO (07:34)
[2018-05-26] MEDS ORDERED: MELO7.5T29 PO (07:34)
[2018-05-26 07:37] VITALS: BP 156/78
--- NOTE | 2018-05-26 07:43 | RAD ---
PROCEDURE: PORTABLE CHEST 1V CLINICAL INDICATION: Weakness, dizziness, extremity pain COMPARISON: None FINDINGS: No pneumothorax identified. Cardiac and mediastinal contours unremarkable. No pulmonary consolidation or acute airspace disease. No acute osseous abnormalities identified. IMPRESSION: No pulmonary consolidation or acute airspace disease. Electronically signed by: Andrew Carver DO (05/26/2018 7:41 AM) [facility]
--- NOTE | 2018-05-26 07:45 | RAD ---
Indication: Left forearm pain with grinding movement. TECHNIQUE: 2 views of the left forearm COMPARISON: None Findings/ impression: No acute fracture or dislocation. Electronically signed by: Andrew Carver DO (05/26/2018 7:43 AM) [facility]
[2018-05-26 07:49] LABS: AMPHETAMINE/METHAMPHETAMINE NEG (NEG); BARBITURATES NEG (NEG); BENZODIAZEPINES NEG (NEG); CANNABINOIDS NEG (NEG); COCAINE NEG (NEG); METHADONE NEG (NEG); OPIATES NEG (NEG); PHENCYCLIDINE NEG (NEG)
--- NOTE | 2018-05-26 17:56 | EKG ---
[address] [address] Test Date: 2018-05-26 Test Time: 06:58:07 Pat Name: ELROY WOOD Department: Room: Gender: M Program Clerk: MAMI : 1965 Requested By: RYAN BLEVINS Order Number: [id number] Reading MD: Shaq Cabrera MD Measurements Intervals [place] Rate: 74 P: 15 ID: [id number] QRS: 5 QRSD: 98 T: 22 QT: 398 QTc: 442 Interpretive Statements SINUS RHYTHM Electronically Signed On 05-28-2018 16:22:21 CDT by Shaq Cabrera MD
== END 2018-05-26 07:40 | disposition home or self-care (01) ==
LOC: ER 06:20
DX: R42 Dizziness and giddiness (principal); M79.602 Pain in left arm; R53.1 Weakness; M19.90 Unspecified osteoarthritis, unspecified site; M79.7 Fibromyalgia; E78.00 Pure hypercholesterolemia, unspecified; Z88.6 Allergy status to analgesic agent
CPT/HCPCS: 36415; 71045; 73090; 80053; 80307; 83735; 83880; 84484; 85025; 93005; 96374; 96375; 99284; J1200; J1885

== ENCOUNTER 2018-11-25 03:20 | Emergency (ER) | payer MEDICAID ==
[~2018-11-25] VITALS: Ht 160 cm; Wt 74.9 kg
[~2018-11-25 03:20] MED LIST changes: +DIPH25CA58 PO; +MELO7.5T29 PO
[2018-11-25 03:27] VITALS: BP 142/82
--- NOTE | 2018-11-25 03:37 | ED.ADGEN ---
Past History Past Medical History: Arthritis, Fibromyalgia, High Cholesterol, Other Additional Past Medical Histor: depression Past Surgical History: No Surgical History Alcohol Use: None Drug Use: None Adult General Chief Complaint Chief Complaint ".. 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 and the tila are the kind with bolt all the way through.. the mount.. I was cranking down on the bolt.. to make sure it was tight .. the wrench slipped.. and I jammed my hand into the block.... this was last .... I just hope or waiting for it to get better.. but it has' nt...." HPI HPI Patient is a 53 year old male who presents with above hx and complaints Rt. hand injury. Patient localizes injury to metatarsophalangeal his 5 and 4. Does have range of motion with fingers but has obvious contusion to dorsal side of right hand. Does have a history of previous fractures in right hand. Distal neurovascular is equal to left hand. Patient is right-hand dominant. Does have a history of arthritis and fibromyalgia.. Recent flare and pain which he blames on weather change . Patient does have some mild scissoring with movement of the fingers of right hand. Pt. follows with Dr. Carrillo. Review of Systems Review of Systems Constitutional: Denies fever or chills [] Eyes: Denies change in visual acuity, redness, or eye pain [] HENT: Denies nasal congestion or sore throat [] Respiratory: Denies cough or shortness of breath [] Cardiovascular: No additional information not addressed in HPI [] GI: Denies abdominal pain, nausea, vomiting, bloody stools or diarrhea [] : Denies dysuria or hematuria [] Musculoskeletal: Complains of right hand pain Integument: Denies rash or skin lesions [] Neurologic: Denies headache, focal weakness or sensory changes [] Endocrine: Denies polyuria or polydipsia [] All other systems were reviewed and found to be within normal limits, except as documented in this note. Family History Family History Noncontributory Current Medications Current Medications See nursing for home meds Allergies Allergies Allergies Coded Allergies Type Severity Reaction Last Updated Verified tramadol Allergy Intermediate Itching 05/19/18 Yes Physical Exam Physical Exam Constitutional: Moderate distress, non-toxic appearance. [] HENT: Normocephalic, atraumatic, bilateral external ears normal, oropharynx moist, no oral exudates, nose normal. [] Eyes: PERRLA, EOMI, conjunctiva normal, no discharge. Glasses Neck: Normal range of motion, no tenderness, supple, no stridor. [] Cardiovascular:Heart rate regular rhythm, no murmur [] Lungs & Thorax: Bilateral breath sounds equal apex with few scattered wheezes on auscultation [] Abdomen: Bowel sounds normal, soft, no tenderness, no masses, no pulsatile masses. [] Skin: Warm, dry, no erythema, no rash. [] Back: No tenderness, no CVA tenderness. [] Extremities: No tenderness, no cyanosis, no clubbing, ROM intact, no edema. [] Except findings in right hand as per history of present illness. Has findings of chronic arthritis Neurologic: Alert and oriented X 3, normal motor function, normal sensory fu nction, no focal deficits noted. [] Psychologic: Affect anxious, judgement normal, mood normal. [] Current Patient Data Vital Signs Vital Signs Date Time Temp Pulse Resp B/P (MAP) Pulse Ox O2 Delivery O2 Flow Rate FiO2 11/25/18 03:27 97.8 62 18 99 Room Air EKG EKG [] Radiology/Procedures Radiology/Procedures [][place] [address] IMAGING REPORT Signed PATIENT: ELROY WOOD ACCOUNT: [id number] : 1965 LOCATION: ER AGE: 53 SEX: M EXAM STATUS: REG ER ORD. PHYSICIAN: CHEMO WANG MD REASON: Injury, right hand pain to prior fracture area PROCEDURE: HAND RIGHT 3V Right hand x-rays 3 views HISTORY: Right hand pain and injury of prior fracture. FINDINGS: There is an old healed traumatic angled deformity from an old healed fracture of the distal fifth metacarpal shaft. There is no acute fracture evident. No dislocation. Soft tissues are unremarkable. IMPRESSION: No acute osseous injury. Old healed fracture deformity of the fifth metacarpal. Electronically signed by: Carlos Manuel Nuno MD (11/25/2018 4:22 AM) [facility] [place]CTATED AND SIGNED BY: CARLOS MANUEL NUNO MD DATE: 11/25/18 0422 CC: CHEMO WANG MD; GRAZYNA CARRILLO Course & Med Decision Making Course & Med Decision Making Pertinent Labs and Imaging studies reviewed. (See chart for details) Patient take Tylenol and ibuprofen for pain. For marked pain may take Vicoprofen up 4 times a day. Patient to do a trial of Voltran cream for hand pain relief. Pt. to follow-up primary care. Patient return if any concerns. [] Final Impression Final Impression 1. Right hand contusion[] 2. Arthritis 3. Healed -5th metacarpal fx. Rt. hand Dragon Disclaimer Dragon Disclaimer This electronic medical record was generated, in whole or in part, using a voice recognition dictation system. Dragon Disclaimer This chart was dictated in whole or in part using Voice Recognition software in a busy, high-work load, and often noisy Emergency Department environment. It may contain unintended and wholly unrecognized errors or omissions. CHEMO WANG MD Nov 25, 2018 03:37
--- NOTE | 2018-11-25 04:25 | RAD ---
Right hand x-rays 3 views HISTORY: Right hand pain and injury of prior fracture. FINDINGS: There is an old healed traumatic angled deformity from an old healed fracture of the distal fifth metacarpal shaft. There is no acute fracture evident. No dislocation. Soft tissues are unremarkable. IMPRESSION: No acute osseous injury. Old healed fracture deformity of the fifth metacarpal. Electronically signed by: Valeriy Nuno MD (11/25/2018 4:22 AM) [facility]
[2018-11-25] MEDS ORDERED: HYDR-1179 PO ×2 (04:40→04:57)
[2018-11-25] MEDS ORDERED: DICL100G18 TP (04:41)
== END 2018-11-25 05:00 | disposition home or self-care (01) ==
LOC: ER 03:20
DX: S60.221A Contusion of right hand, initial encounter (principal); M19.90 Unspecified osteoarthritis, unspecified site; M79.7 Fibromyalgia; E78.00 Pure hypercholesterolemia, unspecified; Z88.6 Allergy status to analgesic agent; W23.0XXA Caught, crushed, jammed, or pinched between moving objects, initial encounter; Y93.89 Activity, other specified; Y92.89 Other specified places as the place of occurrence of the external cause; Y99.8 Other external cause status
CPT/HCPCS: 73130; 99284

== ENCOUNTER 2018-12-11 17:10 | Emergency (ER) | payer MEDICAID ==
[~2018-12-11] VITALS: Ht 160 cm; Wt 74.4 kg
[~2018-12-11 17:10] MED LIST changes: +DICL100G18 TP; +HYDR-1179 PO
[2018-12-11 17:25] VITALS: BP 145/90
--- NOTE | 2018-12-11 17:41 | PHYS DOC ---
Past History Past Medical History: High Cholesterol, Hypertension Additional Past Medical Histor: depression (RYAN BLEVINS DO) Past Surgical History: No Surgical History (RYAN BLEVINS DO) Smoking: Chew Alcohol Use: None Drug Use: None (RYAN BLEVINS DO) Adult General Chief Complaint Chief Complaint: FINGER INJURY HPI HPI Patient is a 53-year-old male presents with a laceration to his right hand as well as pain. Last night patient was putting in a window when it slammed down on his hand cutting it and causing the pain over the small finger. Pain is moderate. He has taken no medicines for pain. Bleeding was controlled with direct pressure. This afternoon he was working in a [employer], and we opened the wound on his hand. Leading is controllable with direct pressure. Patient takes an aspirin a day. He is not on any other blood thinners. Denies any numbness or tingling. He is right hand dominant. He is uncertain as to when his last tetanus vaccine was.[] (RYAN BLEVINS DO) Review of Systems Review of Systems Constitutional: Denies fever or chills [] Eyes: Denies change in visual acuity, redness, or eye pain [] HENT: Denies nasal congestion or sore throat [] Respiratory: Denies cough or shortness of breath [] Cardiovascular: No chest pain or palpitations[] GI: Denies abdominal pain, nausea, vomiting, bloody stools or diarrhea [] : Denies dysuria or hematuria [] Musculoskeletal: Denies back pain, see history of present illness[] Integument: Denies rash or skin lesions , see history of present illness[] Neurologic: Denies headache, focal weakness or sensory changes [] Endocrine: Denies polyuria or polydipsia [] All other systems were reviewed and found to be within normal limits, except as documented in this note. (RYAN BLEVINS DO) Allergies Allergies Allergies Coded Allergies Type Severity Reaction Last Updated Verified tramadol Allergy Intermediate Itching 05/19/18 Yes (RYAN BLEVINS DO) Physical Exam Physical Exam Constitutional: Well developed, well nourished, no acute distress, non-toxic appearance. [] HENT: Normocephalic, atraumatic, bilateral external ears normal, oropharynx moist, no oral exudates, nose normal. [] Eyes: PERRLA, EOMI, conjunctiva normal, no discharge. [] Neck: Normal range of motion, no tenderness, supple, no stridor. [] Cardiovascular:Heart rate regular rhythm, no murmur [] Lungs & Thorax: Bilateral breath sounds clear to auscultation [] Abdomen: Not examined. [] Skin: Warm, dry, no erythema, no rash. [] Back: No tenderness, no CVA tenderness. [] Extremities: Right hand has a laceration on the dorsum, approximately 1 cm, transverse, at the small finger metacarpal phalangeal joint region. FDS, FDP, and extensor mechanisms are intact. There is diffuse pain in the region. Increased pain with axial loading. Capillary refill is less than 2 seconds. 2. discrimination is less than 5 mm. The other 3 extremities show: No tenderness, no cyanosis, no clubbing, ROM inta ct, no edema. [] Neurologic: Alert and oriented X 3, normal motor function, normal sensory function, no focal deficits noted. [] Psychologic: Affect normal, judgement normal, mood normal. [] (RYAN BLEVINS DO) Current Patient Data Vital Signs Vital Signs Date Time Temp Pulse Resp B/P (MAP) Pulse Ox O2 Delivery O2 Flow Rate FiO2 12/11/18 17:25 97.8 67 21 98 Room Air (RYAN BLEVINS DO) EKG EKG [] (RYAN BLEVINS DO) Radiology/Procedures Radiology/Procedures [] (RYAN BLEVINS DO) Course & Med Decision Making Course & Med Decision Making Pertinent Labs and Imaging studies reviewed. (See chart for details) [] (RYAN BLEVINS DO) Course & Med Decision Making The patient had a foreign body around the middle phalanx of the fifth digit. I was able to remove the foreign body. It was a small shard of glass. See foreign body removal note for more details. The patient also had a second 2 cm laceration that I closed with Steri-Strip and somewhat fashion. See lac note for more details. I give the patient 1 g of Rocephin IM. I will also give him 7 days of Keflex. He is stable for discharge at this time. (LINDA ROBERTS DO) Dragon Disclaimer Dragon Disclaimer This electronic medical record was generated, in whole or in part, using a voice recognition dictation system. (RYAN BLEVINS DO) Foreign Body Removal Procedure Indication: Foreign body in left 5th digit Procedure: The area of the foreign body was cleaned with alcohol. I performed a digital block of the fifth digit with lidocaine without epinephrine. A total of 2.5 mL was used. I was unable to reopen the initial wound with a glass went in and was able remove it that way. No additional incision was made. Given this was an injury 24 hours ago. I only closed the wound with a single Steri-Strip. A clean dressing was applied over this area. The patient's tetanus is not up-to-date. We gave him a booster in the ED. The patient tolerated the procedure well. Complications: None. (LINDA ROBERTS DO) Laceration Repair Lac Repair Indication: []2 cm linear laceration to her right hand at the base of the fifth digit. This is a delayed closure as this occurred 24 hours ago. Procedure: Wound was thoroughly irrigated with normal saline under pressure. No anesthesia was used. His is a delayed closure, so sutures are not indicated. I approximated the margins of the wound with a single Steri-Strip. A clean dressing was applied over the area. The patient's tetanus was updated. Total repaired wound length: Centimeter Other Items: None The patient tolerated the procedure well Complications: Delayed closure (LINDA ROBERTS DO) Departure Departure: Impression: Primary Impression: Foreign body of finger of right hand Additional Impression: Laceration of right hand Disposition: 01 HOME, SELF-CARE Condition: IMPROVED Referrals: PRISCILLA CONDE DO (PCP) Patient Instructions: Foreign Body-Brief, Laceration Care, Adult, [id number] Scripts Cephalexin (KEFLEX) 500 Mg Capsule 1 CAP PO TID for infection prophylaxis, #21 CAP Prov: LINDA ROBERTS DO 12/11/18 Problem Qualifiers Primary Impression: Foreign body of finger of right hand Encounter type: initial encounter Qualified Codes: S60.459A - Superficial foreign body of unspecified finger, initial encounter Additional Impression: Laceration of right hand Encounter type: initial encounter Foreign body presence: without foreign body Qualified Codes: S61.411A - Laceration without foreign body of right hand, initial encounter RYAN BLEVINS DO Dec 11, 2018 17:41 LINDA ROBERTS DO Dec 11, 2018 18:50
[2018-12-11] MEDS ORDERED: DIPHTH,PERTUSS(ACELL),TET TOX 0.5 ML DISP.SYRIN. VAX IM ONE (18:00)
--- NOTE | 2018-12-11 18:05 | RAD ---
Exam: Right hand 3 views INDICATION: Pain, bleeding TECHNIQUE: Frontal, lateral and oblique views of the right hand Comparisons: None FINDINGS: There is a triangular radiopaque foreign body injecting in the soft tissues overlying the middle phalanx of the fifth digit measuring approximately 4 mm. Bone mineralization is normal. No acute or healed fractures. Joint spaces are well-maintained. IMPRESSION: Triangular shaped radiopaque foreign body measuring 4 mm projecting at soft tissues overlying the middle phalanx of the fifth digit. Electronically signed by: Mikaela Levy MD (12/11/2018 6:03 PM) [facility]
[2018-12-11] MEDS ORDERED: CEPH-264 PO (18:50)
[2018-12-11] MEDS ORDERED: cefTRIAXone IM 1 GM VIAL IM ONE (19:00)
== END 2018-12-11 19:05 | disposition home or self-care (01) ==
LOC: ER 17:10
DX: S61.411A Laceration without foreign body of right hand, initial encounter (principal); S61.227A Laceration with foreign body of left little finger without damage to nail, initial encounter; E78.00 Pure hypercholesterolemia, unspecified; I10 Essential (primary) hypertension; F17.220 Nicotine dependence, chewing tobacco, uncomplicated; Z88.6 Allergy status to analgesic agent; W25.XXXA Contact with sharp glass, initial encounter; Y93.89 Activity, other specified; Y92.89 Other specified places as the place of occurrence of the external cause; Y99.8 Other external cause status
CPT/HCPCS: 64450; 73130; 90471; 90715; 96372; 99284; J0696; 94640

== ENCOUNTER 2019-02-15 11:34 | Inpatient (IN) | payer MEDICAID ==
[~2019-02-15] VITALS: Ht 160 cm; Wt 75.7 kg
[~2019-02-15 11:34] MED LIST changes: +CEPH-264 PO; +SIMV10TA15 PO; -SIMV10TA3 PO
[2019-02-15] MEDS ORDERED: IV NORMAL SALINE 1,000ML 1,000 ML IV SCH (11:52)
[2019-02-15] MEDS ORDERED: ASPIRIN 81 MG TAB.CHEW PO ONE (12:00)
[2019-02-15 12:11] LABS: HEMATOCRIT 41.6 % (39.0-53.0); HEMOGLOBIN 13.9 g/dL (13.0-17.5); RED BLOOD COUNT 4.54 x10^6/uL (4.30-5.70); WHITE BLOOD COUNT 4.5 x10^3/uL (4.0-11.0)
[2019-02-15 12:12] LABS: MEAN CORPUSCULAR HEMOGLOBIN 31 pg (25-35); MEAN CORPUSCULAR HGB CONC 33 g/dL (31-37); MEAN CORPUSCULAR VOLUME 92 fL (79-100); PLATELET COUNT 293 x10^3/uL (140-400); RED CELL DISTRIBUTION WIDTH 12.5 % (11.5-14.5)
--- NOTE | 2019-02-15 12:24 | PHYS DOC ---
Past History Past Medical History: Fibromyalgia, High Cholesterol, Hypertension Additional Past Medical Histor: depression, [place] Past Surgical History: No Surgical History Smoking: Chew Alcohol Use: None Drug Use: None Adult General Chief Complaint Chief Complaint: CHEST PAIN HPI HPI Patient is a 53-year-old male who presents with complaint of left-sided chest discomfort that radiates to the right side of his chest. Patient states that pain is like a dull ache at times and at other times it sharp and stabbing. He rates pain to be a 7 out of 10. He states the pain started about 1 hour prior to arrival. He states that walking, movement, deep breathing and coughing worsen the pain. He states that nothing seems to help with the pain. He denies any nausea, vomiting or diaphoresis. He does indicate that he has had a little bit of a cough. He denies any history of blood clots but states that he was recently worked up for a blood clot.[] Review of Systems Review of Systems Constitutional: Denies fever or chills [] Respiratory: Admits to cough and shortness of breath [] Cardiovascular: No additional information not addressed in HPI [] GI: Denies abdominal pain, nausea, vomiting or diarrhea [] Integument: Denies rash or skin lesions [] Neurologic: Denies headache, focal weakness or sensory changes [] All other systems were reviewed and found to be within normal limits, except as documented in this note. Current Medications Current Medications Current Medications Medications (Trade) Dose Ordered Sig/Edwin Start Time Stop Time Status Last Admin Dose Admin Aspirin (Children'S Aspirin) 324 mg 1X ONCE 02/15/19 12:00 02/15/19 12:01 DC 02/15/19 12:04 324 MG Sodium Chloride 1,000 ml @ 1,000 mls/hr Q1H 02/15/19 11:52 02/15/19 12:51 02/15/19 12:04 1,000 MLS/HR Allergies Allergies Allergies Coded Allergies Type Severity Reaction Last Updated Verified tramadol Allergy Intermediate Itching 05/19/18 Yes Penicillins Allergy Unknown 02/15/19 Yes Physical Exam Physical Exam Constitutional: Well developed, well nourished, no acute distress, non-toxic appearance. [] HENT: Normocephalic, atraumatic, bilateral external ears normal, oropharynx moist, no oral exudates, nose normal. [] Eyes: PERRLA, EOMI, conjunctiva normal, no discharge. [] Neck: Normal range of motion, no tenderness, supple, no stridor. [] Cardiovascular: Regular rate and rhythm. There is reproducible chest wall tenderness on the left sternal border [] Lungs & Thorax: Bilateral breath sounds clear to auscultation [] Abdomen: Bowel sounds normal, soft, no tenderness. [] Skin: Warm, dry, no erythema, no rash. [] Extremities: No tenderness, no cyanosis, no clubbing, ROM intact. [] Neurologic: Alert and oriented X 3, no focal deficits noted. [] Current Patient Data Vital Signs Vital Signs Date Time Temp Pulse Resp B/P (MAP) Pulse Ox O2 Delivery O2 Flow Rate FiO2 02/15/19 11:35 98.3 79 20 95 Room Air Lab Results Laboratory Tests Test 02/15/19 11:50 White Blood Count 4.5 x10^3/uL (4.0-11.0) Red Blood Count 4.54 x10^6/uL (4.30-5.70) Hemoglobin 13.9 g/dL (13.0-17.5) Hematocrit 41.6 % (39.0-53.0) Mean Corpuscular Volume 92 fL (79-100) Mean Corpuscular Hemoglobin 31 pg (25-35) Mean Corpuscular Hemoglobin Concent 33 g/dL (31-37) Red Cell Distribution Width 12.5 % (11.5-14.5) Platelet Count 293 x10^3/uL (140-400) Neutrophils (%) (Auto) % (31-73) Lymphocytes (%) (Auto) % (24-48) Monocytes (%) (Auto) % (0-9) Eosinophils (%) (Auto) % (0-3) Basophils (%) (Auto) % (0-3) Neutrophils # (Auto) x10^3uL (1.8-7.7) Lymphocytes # (Auto) x10^3/uL (1.0-4.8) Monocytes # (Auto) x10^3/uL (0.0-1.1) Eosinophils # (Auto) x10^3/uL (0.0-0.7) Basophils # (Auto) x10^3/uL (0.0-0.2) Platelet Estimate Pending EKG EKG EKG demonstrates normal sinus rhythm with rate of 78.[] Radiology/Procedures Radiology/Procedures [] Impressions: PROCEDURE: PORTABLE CHEST 1V PORTABLE CHEST 1V Clinical indications: Chest pain. COMPARISON: May 26, 2018. Findings: No acute lung infiltrate or pleural effusion or pulmonary edema or lung mass or pneumothorax is seen. The heart size, pulmonary vasculature, mediastinum and both kristyn are unremarkable. Impression: No acute radiographic abnormality is seen. Electronically signed by: Sanford Mcdonald MD (02/15/2019 12:23 PM) [facility] Course & Med Decision Making Course & Med Decision Making Pertinent Labs and Imaging studies reviewed. (See chart for details) [] Dragon Disclaimer Dragon Disclaimer This electronic medical record was generated, in whole or in part, using a voice recognition dictation system. Departure Departure: Impression: Primary Impression: Chest pain Disposition: ADMITTED INPATIENT Admitting Physician: Jerome Camarillo Condition: IMPROVED Referrals: PRISCILLA CONDE DO (PCP) Problem Qualifiers Primary Impression: Chest pain Chest pain type: unspecified Qualified Codes: R07.9 - Chest pain, unspecified RADHA GIRARD Jr., DO Feb 15, 2019 12:24
--- NOTE | 2019-02-15 12:27 | RAD ---
PORTABLE CHEST 1V Clinical indications: Chest pain. COMPARISON: May 26, 2018. Findings: No acute lung infiltrate or pleural effusion or pulmonary edema or lung mass or pneumothorax is seen. The heart size, pulmonary vasculature, mediastinum and both kristyn are unremarkable. Impression: No acute radiographic abnormality is seen. Electronically signed by: Sanford Mcdonald MD (02/15/2019 12:23 PM) [facility]
[2019-02-15 12:30] LABS: ALBUMIN 4.2 g/dL (3.4-5.0); ALBUMIN/GLOBULIN RATIO 1.6 (1.0-1.7); CALCIUM 8.9 mg/dL (8.5-10.1); CREATININE 1.1 mg/dL (0.7-1.3); GFR 70.3; MAGNESIUM 1.9 mg/dL (1.8-2.4); POTASSIUM 3.5 mmol/L (3.5-5.1); TOTAL BILIRUBIN 1.2 mg/dL (0.2-1.0); TOTAL PROTEIN 6.9 g/dL (6.4-8.2)
[2019-02-15 12:46] LABS: % BANDS 1 % (0-9); % BASOS 0 % (0-3); % EOS 0 % (0-5); % LYMPHS 10 % (24-48); % MONOS 9 % (0-10); % SEGS 80 % (35-66); PLT ESTIMATE ADEQUATE (ADEQUATE)
[2019-02-15] MEDS ORDERED: MORPHINE SULFATE 2 MG/ML DISP.SYRIN. IV PRN (13:30)
[2019-02-15] MEDS ORDERED: MORPHINE SULFATE 2 MG/ML DISP.SYRIN. IV ONE (13:30)
[2019-02-15] MEDS ORDERED: ONDANSETRON PF 4 MG/2 ML VIAL. IV PRN (13:30)
[2019-02-15 15:27] VITALS: BP 134/85
[2019-02-15] MEDS ORDERED: FLU VAX QS 2019-20 (36MOS+)/PF 0.5 ML SYRINGE. VAX IM ONE (16:15)
[2019-02-15] MEDS ORDERED: LOSA25TA11 PO (16:43)
[2019-02-15] MEDS ORDERED: PANT40TA5 PO (16:43)
[2019-02-15] MEDS ORDERED: NITR0.4T22 SL (16:43)
[2019-02-15] MEDS ORDERED: ALBU2.5V8 INH (16:43)
[2019-02-15] MEDS ORDERED: BUDE10.22 IH (16:43)
[2019-02-15 19:37] VITALS: BP 126/81
[2019-02-15 22:39] VITALS: BP 104/58
[2019-02-16 05:25] VITALS: BP 114/75
--- NOTE | 2019-02-16 07:57 | PDOC2 ---
CARDIAC CONSULT DATE OF CONSULT Date Of Consult DATE: 02/16/19 TIME: 07:54 REASON FOR CONSULT Reason for Consult Chest pain REFERRING PHYSICIAN Referring Physician Dr. Camarillo SOURCE Source: Chart review, Patient HPI History of Present Illness This is 53 yo male who presented secondary to dizziness and chest pain. Patient reports he was driving yesterday afternoon and suddenly began having blurred vision and had difficulty focusing. [place] like his head was spinning. Then developed tightness in his left chest. [place] slightly short of breath. No diaphoresis or nausea/vomiting. Chest pain did not radiate. Seemed to be worse with deep breathing and cough. No recent fevers or illness. Reports having similar pain previously. Reports having echocardiogram and left heart catheterization two weeks ago at [facility] by Dr. Anaya. Reports no blockage was found in the cath. PAST MEDICAL HISTORY Cardiovascular: HTN, hyperipidemia GI: GERD Musculoskeletal: Osteoarthritis, Other (DDD) Rheumatologic: Fibromyalgia, Gout PAST SURGICAL HISTORY Past Surgical History: No pertinent history FAMILY HISTORY Family History: Coronary Artery Disease (father CABG) SOCIAL HISTORY Smoke: Quit (many years ago) ALCOHOL: none Drugs: None Lives: with Family CURRENT MEDICATIONS Current Medications Current Medications Aspirin (Children'S Aspirin) 324 mg 1X ONCE PO Last administered on 02/15/19at 12:04; Start 02/15/19 at 12:00; Stop 02/15/19 at 12:01; Status DC Sodium Chloride 1,000 ml @ 1,000 mls/hr Q1H IV Last administered on 02/15/19at 12:04; Start 02/15/19 at 11:52; Stop 02/15/19 at 12:51; Status DC Morphine Sulfate (Morphine 2mg Syringe) 2 mg 1X ONCE IV ; Start 02/15/19 at 13:30; Stop 02/15/19 at 13:35; Status DC Ondansetron HCl (Zofran) 4 mg PRN Q4HRS PRN IV NAUSEA/VOMITING; Start 02/15/19 at 13:30; Stop 02/16/19 at 13:29 Morphine Sulfate (Morphine 2mg Syringe) 2 mg PRN Q2HR PRN IV PAIN; Start 02/15/19 at 13:30; Stop 02/16/19 at 13:29 Influenza Virus Vaccine Quadrival (Afluria Quad 2019-20 (3yr Up) Syringe) 0.5 ml ONCE ONCE VAX IM ; Start 02/15/19 at 16:15; Stop 02/15/19 at 16:16; Status DC Influenza Virus Vaccine Quadrival (Afluria Quad 2019-20 (3yr Up) Syringe) 0.5 ml ONCE ONCE VAX IM ; Start 02/16/19 at 09:00; Stop 02/16/19 at 09:01 Active Scripts Active Reported Proair Hfa Inhaler (Albuterol Sulfate) 8.5 Gm Hfa.aer.ad 1 Puff INH PRN Q6HRS PRN Losartan Potassium (Losartan Potassium) 25 Mg Tablet 25 Mg PO DAILY Symbicort 80-4.5 Mcg Inhaler (Budesonide/Formoterol Fumarate) 10.2 Gm Hfa.aer.ad 2 Puff IH BID NITROGLYCERIN SubLingual (Nitroglycerin) 0.4 Mg Tab.subl 0.4 Mg SL PRN Q5MIN PRN Pantoprazole Sodium 40 Mg Tablet.dr 1 Tab PO DAILY Toprol Xl (Metoprolol Succinate) 25 Mg Tab.er.24h 25 Mg PO DAILY Simvastatin 10 Mg Tablet 10 Mg PO AFTRNOON Gabapentin (Gabapentin) 300 Mg Capsule 300 Mg PO BID Celebrex (Celecoxib) 200 Mg Capsule 200 Mg PO 1X Aspirin 325 Mg Tablet 325 Mg PO 1X ALLERGIES Allergies: Coded Allergies: tramadol (Verified Allergy, Intermediate, Itching, 05/19/18) Penicillins (Verified Allergy, Unknown, 02/15/19) ROS Review of Systems 14 point ROS conducted with pertinent positives noted above in HPI. PHYSICAL EXAM General: Alert, Oriented X3, Cooperative, No acute distress HEENT: Mucous membr. moist/pink Lungs: Clear to auscultation Heart: Regular rate, Normal S1, Normal S2 Abdomen: Soft, No tenderness Extremities: No edema, Normal pulses Skin: No breakdown Neuro: Normal speech, Sensation intact Psych/Mental Status: Mental status NL, Mood NL MUSCULOSKELETAL: Osteoarthritic changes both hands VITALS Vital Signs Vital Signs Date Time Temp Pulse Resp B/P (MAP) Pulse Ox O2 Delivery O2 Flow Rate FiO2 02/16/19 05:25 97.5 57 20 114/75 (88) 97 Room Air LABS LABS Laboratory Tests Test 02/15/19 11:50 02/15/19 19:25 02/15/19 23:34 White Blood Count 4.5 x10^3/uL (4.0-11.0) Red Blood Count 4.54 x10^6/uL (4.30-5.70) Hemoglobin 13.9 g/dL (13.0-17.5) Hematocrit 41.6 % (39.0-53.0) Mean Corpuscular Volume 92 fL (79-100) Mean Corpuscular Hemoglobin 31 pg (25-35) Mean Corpuscular Hemoglobin Concent 33 g/dL (31-37) Red Cell Distribution Width 12.5 % (11.5-14.5) Platelet Count 293 x10^3/uL (140-400) Neutrophils (%) (Auto) % (31-73) Lymphocytes (%) (Auto) % (24-48) Monocytes (%) (Auto) % (0-9) Eosinophils (%) (Auto) % (0-3) Basophils (%) (Auto) % (0-3) Neutrophils # (Auto) x10^3uL (1.8-7.7) Lymphocytes # (Auto) x10^3/uL (1.0-4.8) Monocytes # (Auto) x10^3/uL (0.0-1.1) Eosinophils # (Auto) x10^3/uL (0.0-0.7) Basophils # (Auto) x10^3/uL (0.0-0.2) Segmented Neutrophils % 80 % (35-66) Band Neutrophils % 1 % (0-9) Lymphocytes % 10 % (24-48) Monocytes % 9 % (0-10) Eosinophils % 0 % (0-5) Basophils % 0 % (0-3) Platelet Estimate Adequate (ADEQUATE) Crenated Cell Present D-Dimer (Roopa) 0.31 mg/L (0.00-0.50) Sodium Level 137 mmol/L (136-145) Potassium Level 3.5 mmol/L (3.5-5.1) Chloride Level 100 mmol/L (98-107) Carbon Dioxide Level 28 mmol/L (21-32) Anion Gap 9 (6-14) Blood Urea Nitrogen 13 mg/dL (8-26) Creatinine 1.1 mg/dL (0.7-1.3) Estimated GFR (Cockcroft-Gault) 70.3 BUN/Creatinine Ratio 12 (6-20) Glucose Level 97 mg/dL (70-99) Calcium Level 8.9 mg/dL (8.5-10.1) Magnesium Level 1.9 mg/dL (1.8-2.4) Total Bilirubin 1.2 mg/dL (0.2-1.0) Aspartate Amino Transf (AST/SGOT) 20 U/L (15-37) Alanine Aminotransferase (ALT/SGPT) 22 U/L (16-63) Alkaline Phosphatase 73 U/L (46-116) Troponin I Quantitative < 0.017 ng/mL (0-0.055) < 0.017 ng/mL (0-0.055) < 0.017 ng/mL (0-0.055) TN-Fzm-P-Type Natriuretic Peptide 27 pg/mL (0-124) Total Protein 6.9 g/dL (6.4-8.2) Albumin 4.2 g/dL (3.4-5.0) Albumin/Globulin Ratio 1.6 (1.0-1.7) ASSESSMENT/PLAN Assessment/Plan 1. Chest pain, atypical; AMI ruled out. Reports cath without obstructive disease 2 weeks ago at [place]. 2. Hypertension; controlled 3. Hyperlipidemia; statin 4. Dizziness; resolved 5. GERD 6. ? Anxiety Recommendations Obtain cardiac records from [facility] including heart cath and echocardiogram Resume home medications No further cardiac workup warrant at this time. BECKY DONALDSON APRN Feb 16, 2019 07:57
[2019-02-16] MEDS ORDERED: FLU VAX QS 2019-20 (36MOS+)/PF 0.5 ML SYRINGE. VAX IM ONE (09:00)
[2019-02-16] MEDS ORDERED: ACETAMINOPHEN 325 MG TABLET PO PRN (10:45)
[2019-02-16 10:50] VITALS: BP 127/79
[2019-02-16 15:01] VITALS: BP 120/77
--- NOTE | 2019-02-16 18:10 | SSS ---
ADMIT DATE: 02/15/2019 HISTORY OF PRESENT ILLNESS: The patient is a 53-year-old male patient who came to the Emergency Room with a complaint of left-sided chest discomfort that radiates to the right side of his chest. The patient described the pain as a dull ache at times and other times sharp and stabbing. He rates his pain as about 7/10. The pain has started about an hour prior to arrival. He also felt that walking movement, deep breathing and coughing worsened pain. He states that nothing seems to help the pain. Denies, however, any nausea, vomiting or diaphoresis. He does indicate that he has had a little bit of cough, has also some dizziness and things are spinning around. He was evaluated in the Emergency Room. His EKG demonstrated normal sinus rhythm with a heart rate of 78. His chest x-ray showed that there is no acute lung infiltrate or pleural effusion or pulmonary edema or lung mass or pneumothorax. The heart size, pulmonary vasculature, mediastinum and both kristyn are unremarkable. His first set of cardiac enzyme was less than 0.017 and he was admitted to do 2 more sets of cardiac enzymes and check his fasting lipid profile and consult the Cardiology team. PAST MEDICAL HISTORY: Significant for hypertension, hyperlipidemia, gastroesophageal reflux disease, esophageal stricture that was dilated twice. He has osteoarthritis and degenerative disk disease especially of his cervical spine. PAST SURGICAL HISTORY: Significant for left heart catheterization done only about a week ago at [facility] [place]. He has also had esophageal stricture that was dilated twice. ALLERGIES: HE IS ALLERGIC TO PENICILLIN AND TRAMADOL. MEDICATIONS: He is currently on following medications: He is on albuterol sulfate 1 puff every 6 hours, simvastatin 10 mg at bedtime, nitroglycerin 0.4 mg sublingual every 5 minutes x 3, metoprolol succinate 25 mg daily, losartan potassium 25 mg daily, aspirin 325 mg once a day, Celebrex 200 mg daily, gabapentin 300 mg twice a day, Symbicort 2 puffs twice a day and Protonix 40 mg daily. FAMILY HISTORY: He has 1 older sister who has epilepsy. One younger sister has a stent put in. His father is alive at age of 75 and had myocardial infarction and underwent coronary artery bypass graft surgery x 4. His mother is still alive at the age of 79 and has no hypertension. SOCIAL HISTORY: Single, never , has no children. He was a smoker when he was a teenager for a short period of time. He does not drink alcohol or use any recreational drugs. He is currently disabled. 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 REVIEW OF SYSTEMS: The patient denies any blurring of vision, cataract, glaucoma or macular degeneration. Denied any earache, tinnitus or sensorineural deafness. Denied any nosebleeds, stuffy nose or postnasal drip. Denied any sore throat, sore tongue, toothache, hoarseness of voice or difficulty swallowing. Denied any nausea, vomiting, diarrhea or constipation. Denied any hematemesis, melena or hematochezia. Denied any dysuria, frequency or hematuria. Did complain of chest pain. Denied any nausea or vomiting. Denied any diaphoresis. PHYSICAL EXAMINATION: GENERAL: On arrival to the Emergency Room, he looked well and was clearly in no apparent respiratory distress. No pallor, jaundice, cyanosis or thyromegaly. No jugular venous distention. No limb edema. VITAL SIGNS: His heart rate was 79, blood pressure 148/78, temperature was 98.3, respiratory rate 20, and oxygen saturation was 95%. HEAD, EYES, EARS, NOSE AND THROAT: Showed normocephalic, atraumatic. NECK: Supple. HEART: Showed normal first and second sounds. No gallop or murmur. CHEST: Clear to auscultation. No crepitation or rhonchi. ABDOMEN: Distended, soft, nontender. NEUROLOGIC: He was awake, alert, responding appropriately. He has head titubation and tremors involving his upper extremities, although he has never been diagnosed with Parkinson's disease or essential tremor. He said he saw 7 neurologists for that. LABORATORY DATA: His lab work on admission showed white cell count 4500, hemoglobin 13.9, hematocrit 41, MCV 92 and platelet count 293,000. His chemistry showed a serum sodium 137, potassium 3.5, chloride 100, bicarbonate 28, anion gap of 9, BUN 13, creatinine 1.2 and estimated GFR was 70 mL per minute. His glucose was 97, calcium was 8.9, magnesium was 1.9. Total bilirubin slightly elevated, but AST, ALT and alkaline phosphatase are normal. His first set of cardiac enzymes showed troponin to be less than 0.017. His total protein was 6.9, albumin was 4.2. His serum triglycerides were 71. ASSESSMENT AND PLAN: The patient was admitted. We will do 2 more sets of cardiac enzymes, check his fasting lipid profile and we will consult the Cardiology team to see him for further evaluation and treatment. JOSE CARPENTER MD DR: WILLAM/evangelist JOB#: [id number] / [id number]
--- NOTE | 2019-02-16 21:36 | DS ---
DATE OF DISCHARGE: 02/16/2019 HOSPITAL COURSE: The patient was admitted with left-sided chest pain that he describes as squeezing, that has been present for almost an hour prior to arrival. It is not associated with any nausea or vomiting. No diaphoresis. He has had 3 sets of cardiac enzymes that were all negative and showed troponin to be less than 0.07. He apparently has an echocardiogram and left heart catheterization done 2 weeks ago at [facility] in [place] by Dr. Anaya and reported no blockage was found on catheterization. His fasting lipid profile was also well controlled. 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 JOSE CARPENTER MD DR: WILLAM/evangelist JOB#: [id number] / [id number]
--- NOTE | 2019-02-17 01:43 | EKG ---
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
== END 2019-02-16 17:14 | disposition home or self-care (01) | DRG 313 ==
LOC: ER 11:34 → 1 SOUTH 13:15
PROVIDERS: ADMIT Internal Medicine; ATTEND Internal Medicine
DX: R07.89 Other chest pain (principal); E78.00 Pure hypercholesterolemia, unspecified; I10 Essential (primary) hypertension; F32.9 Major depressive disorder, single episode, unspecified; M19.90 Unspecified osteoarthritis, unspecified site; M10.9 Gout, unspecified; G20 Parkinson's disease; K21.9 Gastro-esophageal reflux disease without esophagitis; E78.5 Hyperlipidemia, unspecified; F41.9 Anxiety disorder, unspecified; M50.30 Other cervical disc degeneration, unspecified cervical region; M79.7 Fibromyalgia; Z82.49 Family history of ischemic heart disease and other diseases of the circulatory system; Z88.6 Allergy status to analgesic agent; Z88.0 Allergy status to penicillin; Z82.0 Family history of epilepsy and other diseases of the nervous system; Z87.891 Personal history of nicotine dependence
CPT/HCPCS: 36415; 71045; 80053; 80061; 83735; 83880; 84484; 85007; 85025; 85379; 90471; 90686; 93005; 96360; 96361; 99285-25; J7030

== ENCOUNTER 2019-04-19 15:52 | Emergency (ER) | payer MEDICAID, OTHER ==
[~2019-04-19] VITALS: Ht 160 cm; Wt 74.9 kg
[~2019-04-19 15:52] MED LIST changes: +ALBU2.5V8 INH; +BUDE10.22 IH; +LOSA25TA11 PO; +NITR0.4T22 SL; +PANT40TA5 PO
[2019-04-19] MEDS ORDERED: NAPROXEN 500 MG TABLET PO ONE (16:30)
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
[2019-04-19 17:20] VITALS: BP 129/87
[2019-04-19] MEDS ORDERED: CYCL-331 PO (17:38)
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
== END 2019-04-19 17:46 | disposition home or self-care (01) ==
LOC: ER 15:52
DX: G89.11 Acute pain due to trauma (principal); M54.2 Cervicalgia; M54.5 Low back pain; I10 Essential (primary) hypertension; E78.5 Hyperlipidemia, unspecified; Z88.0 Allergy status to penicillin; Z88.8 Allergy status to other drugs, medicaments and biological substances; V49.49XA Driver injured in collision with other motor vehicles in traffic accident, initial encounter; Y93.89 Activity, other specified; Y92.410 Unspecified street and highway as the place of occurrence of the external cause; Y99.8 Other external cause status
CPT/HCPCS: 72040; 72080; 99284

== ENCOUNTER 2021-01-07 16:30 | Emergency (ER) | payer OTHER ==
[~2021-01-07] VITALS: Ht 160 cm; Wt 80.0 kg
[~2021-01-07 16:30] MED LIST changes: +CYCL10TA19 PO; -DULO60CA6 PO; +DULO60CA7 PO; -LISI-338 PO; +LISI5TAB15 PO; -PANT40TA5 PO; +PANT40TA6 PO
[2021-01-07 16:44] VITALS: BP 157/103
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
[2021-01-07] MEDS ORDERED: DIPH,PERTUSS(ACELL),TET VAC/PF 0.5 ML SYRINGE. VAX IM ONE (17:00)
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
[2021-01-07] MEDS ORDERED: IBUP600T16 PO (17:47)
[2021-01-07] MEDS ORDERED: CYCL5TAB PO (17:47)
== END 2021-01-07 17:54 | disposition home or self-care (01) ==
LOC: ER 16:30
DX: S60.412A Abrasion of right middle finger, initial encounter (principal); S60.414A Abrasion of right ring finger, initial encounter; M25.562 Pain in left knee; M54.6 Pain in thoracic spine; M19.90 Unspecified osteoarthritis, unspecified site; M79.7 Fibromyalgia; E78.00 Pure hypercholesterolemia, unspecified; I10 Essential (primary) hypertension; F17.220 Nicotine dependence, chewing tobacco, uncomplicated; Z88.0 Allergy status to penicillin; Z88.6 Allergy status to analgesic agent; V89.2XXA Person injured in unspecified motor-vehicle accident, traffic, initial encounter; Y93.I9 Activity, other involving external motion; Y92.89 Other specified places as the place of occurrence of the external cause; Y99.8 Other external cause status
CPT/HCPCS: 70450; 71101; 72125; 73090; 73110; 90471; 90715; 99285-25